=== PATIENT | female | born 2000 | race Caucasian/White ===

== ENCOUNTER 2023-05-19 21:25 | Emergency (ER) | payer BC ==
[2023-05-19] MEDS ORDERED: Albuterol 6.7 GM Inhaler INH ONE (21:26)
[2023-05-19] MEDS ORDERED: methylPREDNISolone Sodium Succinate 125 MG/2 ML SDV IM ONE (21:26)
[2023-05-19] MEDS ORDERED: Albuterol/Ipratropium 3.0-0.5 MG/3 ML Neb Soln NEB ONE (21:26)
[2023-05-19] MEDS ORDERED: Azithromycin 250 MG Tab PO ONE (21:26)
[2023-05-19] MEDS ORDERED: LORazepam 2 MG/ML SDV IM ONE (21:26)
[2023-05-19] MEDS ORDERED: Acetaminophen/oxyCODONE 325-5 MG Tab PO STA (22:23)
== END 2023-05-19 23:51 | disposition home or self-care (01) ==
LOC: FB.ED 21:25
DX: J20.8 Acute bronchitis due to other specified organisms (principal); Z88.7 Allergy status to serum and vaccine
CPT/HCPCS: 87651; 96372; 99284; A9270; J2060; J7620